=== PATIENT | female | born 2000 | race Caucasian/White ===

== ENCOUNTER 2025-01-31 01:26 | Emergency (ER) | payer OTHER, SELFPAY ==
[2025-01-31 01:38] VITALS: BP 150/92; PULSE 96; RESP 16; TEMP 36.8; O2SAT 100
[2025-01-31 02:16] LABS: Add Urine Microscopic? NO; Appearance Urine Clear (Clear); Glucose Urine UA Negative (Negative); Leukocyte Esterase Ur Negative LEU/UL (Negative); Nitrate Urine Negative (Negative); Specific Grav Ur 1.012 (1.001-1.035)
--- NOTE | 2025-01-31 02:38 | ED.FEMALEGU ---
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 Patient states that both her and her significant other have had some discharge and they believe it is either gonorrhea or chlamydia. Patient states that she had gonorrhea and chlamydia this past December and took medications for it and felt better but is concerned that she contracted it again from her current boyfriend who may have not been treated for it. Admits to mild whitish/yellowish vaginal discharge otherwise denies any additional symptoms including abdominal pain, fevers or chills, dysuria or hematuria. Related Data Allergies Allergy/AdvReac Type Severity Reaction Status Date / Time No Known Allergies Allergy Verified 01/31/25 03:47 Review of Systems Review of Systems: All systems are reviewed and are negative unless stated otherwise in the HPI. Exam Narrative: General: Alert, awake, afebrile, in no acute distress. HEENT: PERRL, no rhinorrhea, no post nasal drip, oropharynx clear. Neck: Trachea midline, no JVD, no lymphadenopathy. Cardiovascular: Regular rate and rhythm, no murmurs, rubs or gallops, no peripheral edema. Respiratory: Clear to auscultation bilaterally, no tachypnea, no wheezing, no rhonchi, no rubs, no respiratory distress. Abdomen: Soft, nontender, nondistended, no rebound, no guarding, no peritoneal signs. Musculoskeletal: No joint swelling or deformity, normal muscle tone. Skin: No rashes or petechia, no signs of infection. Psychiatric: Alert and oriented, normal behavior and judgment for situation. Neurological: Alert and oriented to person, place, and time. Follows all commands. No focal deficits, speech is clear and fluent. Course Vital Signs Vital signs: Vital Signs Temperature 98.2 F 01/31/25 01:38 Pulse Rate 96 01/31/25 01:38 Respiratory Rate 16 01/31/25 01:38 Blood Pressure 150/92 H 01/31/25 01:38 Pulse Oximetry 100 01/31/25 01:38 Oxygen Delivery Room Air 01/31/25 01:38 Temperature 98.2 F 01/31/25 01:38 Pulse Rate 96 01/31/25 01:38 Respiratory Rate 16 01/31/25 01:38 Blood Pressure 150/92 H 01/31/25 01:38 Pulse Oximetry 100 01/31/25 01:38 Oxygen Delivery Room Air 01/31/25 01:38 MDM - Female Genitourinary MDM Narrative Medical decision making narrative: The patient was evaluated by myself in the emergency department. History is obtained from patient who is an independent historian and physical exam was performed. External medical records were reviewed at this time. Urinalysis unremarkable. STD testing did return back positive for gonorrhea. Patient was administered her 1st dose of Rocephin IM 500 mg in the emergency department and was informed that she will be sent home on 2 scripts for doxycycline and Flagyl to take as prescribed for the next 7 days and patient is in agreement. Differential diagnosis considerations include urinary tract infection, STD infection including gonorrhea, chlamydia, Trichomonas. Comorbidities impacting this visit include history of recurrent gonorrhea/chlamydia infection. I have evaluated and discussed social determinants of health with the patient that could potentially impact subsequent diagnosis and treatment plans. On repeat assessment of the patient, reevaluation revealed that the patient is doing well and is in no acute distress. Patient symptoms have improved since she arrived to our emergency department. Repeat vital signs were all reviewed and noted to be stable. Differential diagnosis and treatment plan were discussed with the patient at bedside. Patient agrees with discussion and after shared medical decision making agrees with discharge. All questions were answered to the patient's satisfaction. Patient will follow up with her PCP in 3-5 days. Patient was provided with strict return precautions and instructed to return to the emergency department if any new or worsening symptoms develop. The patient was discharged in stable condition. Lab Data Labs: Lab Results 01/31/25 01/31/25 Range/Units 02:00 02:01 Urine Color Yellow (Yellow) Urine Appearance Clear (Clear) Urine pH 7.5 (5.0-9.0) Ur Specific Anita 1.012 (1.001-1.035) Urine Protein Negative (Negative) mg/dL Urine Glucose (UA) Negative (Negative) mg/dL Urine Ketones Negative (Negative) mg/dL Ur Blood (Man) Negative (Negative) Urine Nitrate Negative (Negative) Urine Bilirubin Negative (Negative) Urine Urobilinogen 0.2 (<2.0) mg/dL Leukocyte Esterase Rfl Negative (Negative) DEE/UL C. trachomatis (PCR) Not detected (NOT DETECTE) N. gonorrhoeae (PCR) Detected A (NOT DETECTE) T. vaginalis (PCR) Not detected (NOT DETECTE) Discharge Plan Discharge Clinical Impression: Gonococcal infection Patient Disposition: Home Condition: Improved Instructions: Antibiotic Form, Gonorrhea (ED) Additional Instructions: Please follow-up with the family doctor within the next 3-5 days. Her the emergency department if any new or worsening symptoms develop. Please take the antibiotics that worse prescribed as instructed for the next 7 days. Patient Language: [place] Prescriptions: New doxycycline hyclate 100 mg capsule 100 mg PO BID 7 Days Qty: 14 0RF metronidazole 500 mg tablet 500 mg PO BID 7 Days Qty: 14 0RF Follow-up/Referrals: [facility] [Other] - 3 Days Time of Disposition: 03:48
[2025-01-31 03:22] LABS: Trichomonas Vag PCR NOT DETECTED (NOT DETECTE)
[2025-01-31] MEDS: cefTRIAXone 500 MG VIAL IM (03:57)
[2025-01-31 03:58] VITALS: BP 119/78; PULSE 76; RESP 18; O2SAT 100
== END 2025-01-31 03:59 | disposition home or self-care (01) ==
PROVIDERS: Emergency Provider Emergency Medicine
DX: A54.00 Gonococcal infection of lower genitourinary tract, unspecified (principal)
CPT/HCPCS: 81003; 87491; 87591; 87661; 96372; 99284; J0696